=== PATIENT | female | born 1950 | race Caucasian/White ===

== ENCOUNTER 2020-03-04 17:28 | Emergency (ER) | payer SELFPAY ==
[~2020-03-04] VITALS: Ht 172.7 cm; Wt 83.1 kg
[2020-03-04 17:32] VITALS: BP 140/86
--- NOTE | 2020-03-04 19:04 | NUR ---
called pt to room, not in lobby
--- NOTE | 2020-03-04 19:15 | NUR ---
not in lobby
--- NOTE | 2020-03-04 19:27 | NUR ---
CALLED ONCE AGAIN FOR PT. NOT IN LOBBY
== END 2020-03-04 19:39 | disposition left against medical advice (07) ==
LOC: ED 19:33
DX: M25.561 Pain in right knee (principal); Z53.21 Procedure and treatment not carried out due to patient leaving prior to being seen by health care provider